=== PATIENT | male | born 1960 | race Caucasian/White ===

== ENCOUNTER → 2023-04-23 | Day surgery (SDC) | payer BC ==
[~2023-04-23] MED LIST: Lidocaine 1% PF 5 ML VIAL ONE; Sodium Bicarbonate 2.5 MEQ/5 ML VIAL ONE
[2023-04-23 14:35] VITALS: BP 172/88; TEMP 98.4
== END ==
LOC: CSHRAD 12:51
PROVIDERS: ATTEND Neurological Surgery
DX: M47.12 Other spondylosis with myelopathy, cervical region (principal); I10 Essential (primary) hypertension; E78.00 Pure hypercholesterolemia, unspecified; M19.90 Unspecified osteoarthritis, unspecified site; Z87.891 Personal history of nicotine dependence; Z79.899 Other long term (current) drug therapy; Z88.6 Allergy status to analgesic agent
CPT/HCPCS: 62302; 72052; 72126